=== PATIENT | female | born 1995 | race Caucasian/White ===

== ENCOUNTER 2023-08-22 14:49 | Observation (INO) | payer MEDICAID, OTHER ==
[~2023-08-22] VITALS: Ht 167.6 cm; Wt 65.3 kg
[2023-08-22 14:54] VITALS: BP 149/93; PULSE 116; RESP 18
[2023-08-22 15:30] LABS: BASOPHILS # (AUTO) 0.01 K/uL (0.00-0.20); BASOPHILS % (AUTO) 0.1 % (0.0-5.0); HEMATOCRIT 32.6 % (36-48); IMMATURE GRANULOCYTE ABSOLUTE 0.04 K/uL (0-1); LYMPHOCYTES # (AUTO) 1.4 K/uL (1.0-4.8); LYMPHOCYTES % (AUTO) 12.4 % (21.0-51.0); MEAN CORPUSCULAR HEMOGLOBIN 27.3 pg (27.0-33.0); MEAN CORPUSCULAR HGB CONC 33.1 g/dL (32.0-36.0); MEAN CORPUSCULAR VOLUME 82.3 fL (79-99); MONOCYTES # (AUTO) 0.7 K/uL (0.1-1.0); MONOCYTES % (AUTO) 6.1 % (3.0-13.0); NEUTROPHILS # (AUTO) 8.8 K/uL (1.8-7.7); PLATELET COUNT (AUTO) 191 K/uL (130-400); RED BLOOD CELL COUNT(AUTO) 3.96 MIL/uL (4.00-5.50); RED CELL DISTRIBUTION WIDTH 13.1 % (11.0-15.5); WHITE BLOOD COUNT (AUTO) 10.9 K/uL (4.8-10.8)
[2023-08-22 15:34] LABS: APPEARANCE,URINE CLEAR (CLEAR); BILIRUBIN,URINE NEGATIVE (NEGATIVE); COLOR,URINE LIGHT-YELLOW (YELLOW); GLUCOSE, URINE (UA) 300 mg/dL (NEGATIVE); KETONES,URINE >=80 mg/dL (NEGATIVE); LEUKOCYTE ESTERASE ,URINE 75 Leu/uL (NEGATIVE); NITRATE,URINE 1+ (NEGATIVE); OCCULT BLOOD,URINE NEGATIVE (NEGATIVE); PROTEIN,URINE 10 mg/dL (NEGATIVE); UROBILINOGEN,URINE 0.2 mg/dL (0.2-1.0)
[2023-08-22 15:37] LABS: ADD UA MICROSCOPIC YES
[2023-08-22 15:39] LABS: BACTERIA,URINE RARE /HPF (None Seen); MUCUS,URINE RARE LPF (None Seen); RBC,URINE 0-1 /HPF (0-1); SQUAMOUS EPITHELIAL CELL,UR RARE /HPF (0-2)
[2023-08-22 15:40] LABS: CREATININE 0.7 mg/dL (0.5-1.0); POTASSIUM 3.4 mmol/L (3.5-5.1)
[2023-08-22 15:41] LABS: FIBRINOGEN 399 mg/dL (180-350)
[2023-08-22 15:42] LABS: INR <= 0.93 (0.85-1.15); PROTHROMBIN TIME 9.8 SEC (9.6-11.6)
[2023-08-22 15:43] LABS: PARTIAL THROMBOPLASTIN TIME 24.5 SEC (26.3-35.5)
[2023-08-22 15:45] LABS: ALBUMIN 2.7 g/dL (3.5-5.0); BILIRUBIN,TOTAL 0.4 mg/dL (0.2-1.0); TOTAL PROTEIN, SERUM 6.8 g/dL (6.0-8.3); URIC ACID 3.6 mg/dL (2.6-7.2)
== END 2023-08-22 16:20 | disposition home or self-care (01) ==
LOC: EDH 14:49 → LDH 15:11
PROVIDERS: ADMIT Obstetrics & Gynecology; ATTEND Obstetrics & Gynecology
DX: O26.893 Other specified pregnancy related conditions, third trimester (principal); R03.0 Elevated blood-pressure reading, without diagnosis of hypertension; Z3A.32 32 weeks gestation of pregnancy
CPT/HCPCS: 84550; 80053; 85025; 85384; 85610; 85730; 87077; 87088; 87186; 81001; 36415; G0379; G0378

== ENCOUNTER 2023-09-17 15:17 | Inpatient (IN) | payer OTHER ==
[~2023-09-17] VITALS: Ht 167.6 cm; Wt 66.2 kg
[~2023-09-17 15:17] MED LIST: OXYTOCIN 10 USP UNITS/ML IM ONE
[2023-09-17 16:48] LABS: APPEARANCE,URINE CLEAR (CLEAR); BILIRUBIN,URINE NEGATIVE (NEGATIVE); COLOR,URINE YELLOW (YELLOW); GLUCOSE, URINE (UA) 70 mg/dL (NEGATIVE); KETONES,URINE NEGATIVE (NEGATIVE); LEUKOCYTE ESTERASE ,URINE 250 Leu/uL (NEGATIVE); NITRATE,URINE NEGATIVE (NEGATIVE); OCCULT BLOOD,URINE NEGATIVE (NEGATIVE); PH,URINE 6.5 (5.0-8.0); PROTEIN,URINE 70 mg/dL (NEGATIVE)
[2023-09-17 16:50] LABS: ADD UA MICROSCOPIC YES
[2023-09-17 17:00] LABS: BACTERIA,URINE RARE /HPF (None Seen); MUCUS,URINE FEW LPF (None Seen); SQUAMOUS EPITHELIAL CELL,UR FEW /HPF (0-2)
[2023-09-17 18:30] LABS: BASOPHILS # (AUTO) 0.01 K/uL (0.00-0.20); BASOPHILS % (AUTO) 0.1 % (0.0-5.0); EOSINOPHILS # (AUTO) 0.01 K/uL (0.00-0.70); EOSINOPHILS % (AUTO) 0.1 % (0.0-8.0); HEMATOCRIT 30.9 % (36-48); IMMATURE GRANULOCYTE ABSOLUTE 0.04 K/uL (0-1); LYMPHOCYTES # (AUTO) 1.6 K/uL (1.0-4.8); LYMPHOCYTES % (AUTO) 20.3 % (21.0-51.0); MEAN CORPUSCULAR HGB CONC 31.1 g/dL (32.0-36.0); MEAN CORPUSCULAR VOLUME 80.5 fL (79-99); MONOCYTES # (AUTO) 0.8 K/uL (0.1-1.0); MONOCYTES % (AUTO) 9.6 % (3.0-13.0); NEUTROPHILS # (AUTO) 5.6 K/uL (1.8-7.7); NEUTROPHILS % (AUTO) 69.4 % (40.0-77.0); PLATELET COUNT (AUTO) 186 K/uL (130-400); RED BLOOD CELL COUNT(AUTO) 3.84 MIL/uL (4.00-5.50); RED CELL DISTRIBUTION WIDTH 13.7 % (11.0-15.5); WHITE BLOOD COUNT (AUTO) 8.1 K/uL (4.8-10.8)
[2023-09-17 18:39] LABS: FIBRINOGEN 372 mg/dL (180-350)
[2023-09-17 18:40] LABS: INR <= 0.93 (0.85-1.15); PROTHROMBIN TIME 9.9 SEC (9.6-11.6)
[2023-09-17 18:41] LABS: CREATININE 0.7 mg/dL (0.5-1.0); PARTIAL THROMBOPLASTIN TIME 24.2 SEC (26.3-35.5); POTASSIUM 3.7 mmol/L (3.5-5.1)
[2023-09-17 18:45] LABS: ALBUMIN 2.4 g/dL (3.5-5.0); BILIRUBIN,TOTAL 0.3 mg/dL (0.2-1.0); TOTAL PROTEIN, SERUM 6.1 g/dL (6.0-8.3); URIC ACID 4.5 mg/dL (2.6-7.2)
[2023-09-17 19:11] LABS: HEMATOCRIT 31.1 % (36-48); MEAN CORPUSCULAR HEMOGLOBIN 25.1 pg (27.0-33.0); MEAN CORPUSCULAR HGB CONC 31.2 g/dL (32.0-36.0); MEAN CORPUSCULAR VOLUME 80.4 fL (79-99); RED BLOOD CELL COUNT(AUTO) 3.87 MIL/uL (4.00-5.50); RED CELL DISTRIBUTION WIDTH 13.7 % (11.0-15.5); WHITE BLOOD COUNT (AUTO) 8.2 K/uL (4.8-10.8)
[2023-09-17 19:45] LABS: HIV 1&2 ANTIBODY Non-Reactive (Negative); HIV-1 p24 Antigen Non-Reactive (Negative)
[2023-09-17] MEDS: LACTATED RINGERS 1000ML 1,000 ML IV SCH (23:38)
[2023-09-18] MEDS: LACTATED RINGERS 1000ML 1,000 ML IV SCH (05:43)
[2023-09-18] MEDS ORDERED: MORPHINE PF 100MG/10ML AMP IV ONE (06:59)
[2023-09-18] MEDS ORDERED: FENTANYL CITRATE PF 50 MCG/1 ML 2ML VIAL ONE (06:59)
[2023-09-18] MEDS ORDERED: PHENYLEPHRINE HCL 10 MG/ML 1ML VIAL IV ONE (07:09)
[2023-09-18] MEDS ORDERED: MISOPROSTOL 200 MCG TABLET ONE (07:19)
[2023-09-18] MEDS: CEFAZOLIN SODIUM 2 GM VIAL IVPB PRN (07:26)
[2023-09-18] MEDS: CITRIC ACID/SODIUM CITRATE 30 ML UDCUP ONE (07:26)
[2023-09-18] MEDS ORDERED: OXYTOCIN 10 USP UNITS/ML ONE (07:56)
[2023-09-18] MEDS ORDERED: ONDANSETRON 4MG INJ ONE (07:59)
[2023-09-18] MEDS ORDERED: MIDAZOLAM HCL 1 MG/ML 2ML VIAL ONE (08:15)
[2023-09-18] MEDS ORDERED: MEPERIDINE-PF 75 MG/ML SYG IM PRN (09:00)
[2023-09-18] MEDS ORDERED: 0.9%NACL 10ML VIAL IVP PRN (09:00)
[2023-09-18] MEDS ORDERED: PROMETHAZINE HCL 25 MG/ML 1ML AMPULE IM PRN (09:00)
[2023-09-18] MEDS: OXYTOCIN-LR 30 UNITS/500ML 500 ML IV ONE (09:53)
[2023-09-18] MEDS: CALDOLOR 800MG+NS 250ML 250 ML IV SCH (09:54)
[2023-09-18 10:55] LABS: RAPID PLASMA REAGIN NONREACTIVE (NONREACTIVE)
[2023-09-18] MEDS: DEXTROSE 5 %-0.45 % NACL 1,000 ML IV PRN (17:08)
[2023-09-19 06:42] LABS: HEMATOCRIT 27.4 % (36-48); MEAN CORPUSCULAR HEMOGLOBIN 24.8 pg (27.0-33.0); MEAN CORPUSCULAR HGB CONC 31.4 g/dL (32.0-36.0); RED BLOOD CELL COUNT(AUTO) 3.47 MIL/uL (4.00-5.50); RED CELL DISTRIBUTION WIDTH 13.8 % (11.0-15.5); WHITE BLOOD COUNT (AUTO) 6.7 K/uL (4.8-10.8)
[2023-09-19] MEDS ORDERED: LANOLIN 30GM OINTMENT TP PRN (08:30)
[2023-09-19] MEDS ORDERED: ACETAMINOPHEN 500 MG TABLET PO PRN (08:30)
[2023-09-19] MEDS ORDERED: BISACODYL 10 MG SUPP.RECT RC PRN (08:30)
[2023-09-19] MEDS ORDERED: HYDROCODONE/ACETAMINOPHEN 5/325 MG TAB PO PRN (08:30)
[2023-09-19] MEDS: DOCUSATE SODIUM 100 MG CAP PO SCH (09:03)
[2023-09-19] MEDS: IBUPROFEN 600 MG TABLET PO PRN (09:04)
[2023-09-19 10:45] VITALS: BP 112/81; PULSE 100; RESP 19
[2023-09-19 12:10] VITALS: BP 123/76; PULSE 95; RESP 20
[2023-09-19] MEDS ORDERED: FERS325 PO (14:28)
[2023-09-19] MEDS ORDERED: PREN1TAB80 PO (14:28)
[2023-09-19 16:07] VITALS: BP 126/77; PULSE 102; RESP 17
[2023-09-19] MEDS: SIMETHICONE 80 MG TAB.CHEW PO PRN (18:06)
[2023-09-19] MEDS: ACETAMINOPHEN WITH CODEINE 1 TAB TAB PO PRN (18:06)
[2023-09-19 20:11] VITALS: BP 139/84; PULSE 91; RESP 19
[2023-09-20 00:02] VITALS: BP 133/82; PULSE 87; RESP 19
[2023-09-20 04:15] VITALS: BP 125/80; PULSE 78; RESP 20
[2023-09-20 07:30] VITALS: BP 127/78; PULSE 70; RESP 20
== END 2023-09-20 08:55 | disposition home or self-care (01) | DRG 785 ==
LOC: EDH 15:17 → OBSVTOIN 15:38 → LDH 15:38 → WSH 09-19 11:19
PROVIDERS: ADMIT Obstetrics & Gynecology; ATTEND Obstetrics & Gynecology
PROC: 0UB70ZZ Excision of Bilateral Fallopian Tubes, Open Approach (ICD-10-PCS; 2023-09-18)
PROC: 10D00Z1 Extraction of Products of Conception, Low, Open Approach (ICD-10-PCS; principal; 2023-09-18 07:30)
DX: O14.04 Mild to moderate pre-eclampsia, complicating childbirth (principal); O32.8XX0 Maternal care for other malpresentation of fetus, not applicable or unspecified; Z3A.36 36 weeks gestation of pregnancy; Z37.0 Single live birth; O34.211 Maternal care for low transverse scar from previous cesarean delivery; Z30.2 Encounter for sterilization
CPT/HCPCS: 36415; 59510; 80053; 81001; 84550; 85025; 85027; 85384; 85610; 85730; 86592; 86701; 86850; 86900; 86901; 86923; 87077; 87088; 87186; 87340; 87390; 88302; A4344; G0378; J1741; J2250; J2274; J2371; J2405; J2590; J3010; J7120; A4248; C1765; J0690; L0625